=== PATIENT | female | born 1985 | race Caucasian/White ===

== ENCOUNTER 2017-06-19 08:23 | Inpatient (IN) ==
[2017-06-19] MEDS ORDERED: 0.9 % Sodium Chloride 1,000 ML IVC ONE (09:08)
--- NOTE | 2017-06-19 09:30 | Emergency Department Note ---
Disposition Clinical Impression: Pulmonary embolism Qualifiers: Pulmonary embolism type: other Chronicity: acute Acute cor pulmonale presence: without acute cor pulmonale Qualified Code(s): I26.99 - Other pulmonary embolism without acute cor pulmonale Disposition: Admitted As Inpatient Condition: Good Referrals: Richard Greenwood MD [Primary Care Provider] - Forms: ED Satisfaction Letter Time of Disposition: 12:23 SOB HPI - General Chief Complaint: ED Shortness of Breath/Dyspnea Stated Complaint: JESÚS,High pulse,dizziness Time Seen by Provider: 06/19/17 08:55 Source: patient Mode of arrival: ambulatory Limitations: no limitations Nursing Notes Reviewed: Yes Vital Signs Reviewed: Yes - History of Present Illness 31-year-old female presents to the ED complaining of shortness of breath. Patient states this tingling on for about a week. She is also having some chest pressure when she has shortness of breath as well. She says the center of her chest. It is nonradiating just stays in the center. She has had no nausea or vomiting. Actually one week ago she said she was lifting a washer and dryer and strained her trapezius. She was seen at urgent care and given muscle relaxers and naproxen. Since then that has healed. But as the shortness of breath started. During that time she was not very active and said she fell at times sitting in bed due to the pain. She recently 1 month ago was put on the NuvaRing. She has no history of blood clots. She has been on no long car rides or plane rides. She said she is very short of breath no matter what she does including just walking around. This is very abnormal for her. She is not a smoker. She has never had any cardiac issues. She is not complaining of leg pain or leg swelling. No recent surgeries. Patient's having no headaches or blurry vision or changes in mental status and no abdominal pain, pain with urination or any constipation. She is having no pain or tingling going down the arms or legs - Related Data Allergies Allergy/AdvReac Type Severity Reaction Status Date / Time Cefaclor [From Ceclor] Allergy Rash Verified 06/18/17 17:13 Review of Systems: 10 point review of systems done and negative unless otherwise stated in history of present illness. All systems ED: reviewed and negative except as stated. Review of Systems: As Per HPI Past Medical History - Past Medical History Attestation: Yes The following information was validated with the patient. Medical history: Reports: no medical history Psychiatric history: Reports: other - Social History Smoking Status: Never smoker Smokeless Tobacco Status: No Alcohol use: Reports: rarely Drug use: Reports: none Physical Exam - General Limitations: no limitations General appearance: alert, in no apparent distress - Head Head exam: atraumatic, normocephalic, normal inspection - Eye Eye exam: Present: normal appearance, PERRL, EOMI - ENT ENT exam: normal exam, normal oropharynx, mucous membranes moist - Neck Neck exam: Present: normal inspection, full ROM, trachea midline - Chest Chest inspection: Present: normal inspection, symmetric chest wall rise - Respiratory Respiratory exam: Present: normal lung sounds bilaterally, accessory muscle use (Patient does have conversational dyspnea). Absent: wheezes, stridor - Cardiovascular Cardiovascular exam: Present: regular rate, normal rhythm, normal heart sounds - Abdominal Exam Abdominal exam: Present: soft, Non-Tender. Absent: tenderness, distention, guarding, rebound, rigidity - Extremities Exam Extremities exam: Present: normal inspection, full ROM, normal capillary refill. Absent: tenderness, pedal edema, calf tenderness - Expanded Lower Extremity Exam Neurovascular/Tendon exam: Absent: motor deficit, sensory deficit, tendon deficit Gait: observed and normal - Back Exam Back exam: Present: normal inspection, full ROM. Absent: tenderness - Neurological Exam Neurological exam: Present: alert, oriented X3 - Skin Skin exam: Present: warm, dry, intact, normal color Course Course Narrative: 31-year-old who presents with shortness of breath and dyspnea thing occurring for week and increased today. 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 Her coworkers were the ones that says she needs to come in. At this time we will do a chest pain workup including a CT angios of her chest looking for pulmonary embolism as she does have risk factors including recent hormone use recent sitting down and shortness of breath. We will get CBC, CMP, urinalysis and as well as chest x-ray and EKG with troponin patient's okay at this point we will reevaluate. We will also give her 1 L of intravenous fluids for the tachycardia. - Consultations Consultation #1: With cardiology, Dr. Ramos who said that he would notify whoever is reading echo that this is a stat read for heart strain. He also recommended that we get a ultrasound duplex bilaterally to see if there is any clot burden. And to see if she may need a IVC filter. They will consult when she gets the floor Time: 12:15 Consultation #2: Spoke with the hospitalist who agreed to admit the patient Dr. Casillas Time: 12:22 Vital Signs Temperature 97.8 F 06/19/17 08:40 Pulse Rate 113 06/19/17 08:40 Respiratory Rate 18 06/19/17 08:40 Blood Pressure 129/86 06/19/17 08:40 O2 Sat by Pulse Oximetry 98 06/19/17 08:40 Temperature 97.8 F 06/19/17 08:40 Pulse Rate 102 06/19/17 10:34 Respiratory Rate 16 06/19/17 10:34 Blood Pressure 125/93 06/19/17 10:34 O2 Sat by Pulse Oximetry 96 06/19/17 10:34 Oxygen Delivery Oxygen Delivery Room Air Shortness of Breath/Dyspnea - MDM Narrative Medical decision making narrative: 31-year-old female presented to the ED with shortness of breath for about one week. She recently started the NuvaRing approximately one month ago. 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 His first breath has been increasing where she has had a cough. She has had no bilateral leg swelling or pain. At this time we got basic labs including CBC and CMP was came back normal. She did have an elevated troponin of 0.04. Due to her risk factors and the shortness of breath was decided to get a CT angios of her chest which did show bilateral pulmonary embolisms. At this time we started heparin. Spoke with cardiology who asked that we get bilateral duplex for clot burden. Patient is very medically stable. We did get a stat echo to look for heart strain. This is still pending and the admitting physician will follow-up on this. I did speak with Dr. Casillas the hospitalist who agreed to accept the patient. Patient is admitted in stable condition. Chest CTA 06/19/17 09:09 IMPRESSION: 1. Right distal pulmonary artery pulmonary emboli extending into the lobar and segmental branches of the right upper lobe, right middle lobe, and right upper lobe. Lobar pulmonary emboli in the left lower lobe, extending into the left lower lobe segmental branches. RV to LV ratio is less than 1. 2. Bilateral peripheral airspace consolidations in the right and left lower lobe. Given the associated pulmonary emboli, this may represent pulmonary infarcts. 3. Small bilateral pleural effusions. 4. Small pericardial effusion. Findings were discussed with Dr. Mccall at 11:17 am on 06/19/2017. D/ / 06/19/2017 11:27:01 Terrence Gomes MD / nereida Interpreting Provider: Terrence Gomes MD Chest X-Ray 06/19/17 09:09 IMPRESSION: Small left pleural effusion. D/ / Fermin Jorge MD / Fermin Jorge MD Interpreting Provider: eFrmin Jorge MD - Medical Records Medical records reviewed: Yes I reviewed the patient's medical records. - Lab Data Lab results reviewed: Yes I reviewed the patient's lab results. Result diagrams: 06/19/17 09:52 06/19/17 09:52 Lab Results 06/19/17 06/19/17 06/19/17 Range/Units 09:52 09:52 09:52 WBC 6.5 (4.3-11.1) K/mcL RBC 4.44 (3.82-4.97) M/mcL Hgb 13.0 (11.5-15.4) g/dL Hct 38.7 (35.3-44.9) % MCV 87.2 (83.0-100.0) fL MCH 29.3 (28.0-33.3) pg MCHC 33.6 (31.6-35.5) g/dL RDW 11.7 (11.5-14.5) % Plt Count 259 (140-400) K/mcL MPV 10.0 (9.4-12.4) fL Immature Gran % 0.2 (0-4) % Seg Neutrophils % 71.9 % Lymphocytes % 16.4 % Monocytes % 9.3 % Eosinophils % 1.7 % Basophils % 0.5 % Neutrophils # 4.7 (1.6-8.9) K/mcL Lymphocytes # 1.1 (0.6-4.6) K/mcL Monocytes # 0.6 (0.0-1.3) K/mcL Eosinophils # 0.1 (0.0-0.6) K/mcL Basophils # 0.0 (0.0-0.2) K/mcL Immature Plt Fraction 3.5 (1.1-6.1) % PT (9.4-12.1) Seconds INR APTT (26.0-36.0) Seconds Sodium 142 (136-145) mEq/L Potassium 3.9 (3.5-4.5) mEq/L Chloride 107 (98-109) mEq/L Carbon Dioxide 22 (19-29) mEq/L BUN 15 (7-20) mg/dL Creatinine 0.77 (0.57-1.11) mg/dL Est GFR ( Amer) > 60 (> 60) Est GFR (Non-Af Amer) > 60 (> 60) BUN/Creatinine Ratio 19 (6-26) Glucose 97 (70-99) mg/dL Calculated Osmolality 295 (280-300) Lactic Acid 0.9 (0.5-2.2) mmol/L Calcium 9.3 (8.6-10.8) mg/dL Troponin I (0-0.03) ng/mL 06/19/17 06/19/17 Range/Units 09:52 09:52 WBC (4.3-11.1) K/mcL RBC (3.82-4.97) M/mcL Hgb (11.5-15.4) g/dL Hct (35.3-44.9) % MCV (83.0-100.0) fL MCH (28.0-33.3) pg MCHC (31.6-35.5) g/dL RDW (11.5-14.5) % Plt Count (140-400) K/mcL MPV (9.4-12.4) fL Immature Gran % (0-4) % Seg Neutrophils % % Lymphocytes % % Monocytes % % Eosinophils % % Basophils % % Neutrophils # (1.6-8.9) K/mcL Lymphocytes # (0.6-4.6) K/mcL Monocytes # (0.0-1.3) K/mcL Eosinophils # (0.0-0.6) K/mcL Basophils # (0.0-0.2) K/mcL Immature Plt Fraction (1.1-6.1) % PT 13.3 H (9.4-12.1) Seconds INR 1.2 APTT 28.1 (26.0-36.0) Seconds Sodium (136-145) mEq/L Potassium (3.5-4.5) mEq/L Chloride (98-109) mEq/L Carbon Dioxide (19-29) mEq/L BUN (7-20) mg/dL Creatinine (0.57-1.11) mg/dL Est GFR ( Amer) (> 60) Est GFR (Non-Af Amer) (> 60) BUN/Creatinine Ratio (6-26) Glucose (70-99) mg/dL Calculated Osmolality (280-300) Lactic Acid (0.5-2.2) mmol/L Calcium (8.6-10.8) mg/dL Troponin I 0.04 H* (0-0.03) ng/mL - Radiology Data Radiology results reviewed: Yes I reviewed the patient's radiology results. - EKG Data EKG attestation: Yes I reviewed and interpreted this EKG. EKG results narrative: EKG done at 0 850 review myself and attending shows sinus tachycardia at a rate of 119, ID interval 131, QRS 78, QTC 406 with a normal axis. There is T-wave inversion in lead 3 and aVF. No acute ST changes. No signs of heart strain or hypertrophy. No signs of any heart blocks. No signs of WPW/Brugada syndrome. There was no old EKG to compare this time. Critical Care Time Critical Care Time: Yes Total Critical Care Time: 45 Attestation: Critical care performed: Time is exclusive of separately billable procedures. Time includes: direct patient care, patient reassessment, coordination of patient care, interpretation of data (laboratory data, radiology data, and respiratory data), review of patient's medical records, medical consultation and documentation of patient care. Procedures included in critical care time: Procedures excluded from critical care time: Attestation Statement - Attestation Attestation: I, Nestor Mccall DO, examined this patient [id number] and my medical decision-making was reviewed with Dr. Vincenzo Mercado, Resident Physician. I agree with the documented findings, disposition and treatment plan as described except to the extent set forth below. Please see my progress notes for details. 31-year-old female presents to the emergency room for evaluation of shortness of breath and tachycardia. Patient has been seen several times over the last week and half for similar issues. Initially she was diagnosed with a muscular skeletal strain of the back One half weeks ago. Symptoms did not get better. Her back pain is gone but she has still been persistently short of breath. Patient denies any chest pain fevers chills nausea vomiting or diarrhea. Denies headache or vision change. She has lost 76 pounds over the last year but this was due to dieting and exercise. She is currently not on any dietary supplements or herbal remedies at this point. She denies any other medical history. She is currently using the NuvaRing. Vital signs reviewed and are otherwise unremarkable except for tachycardia. On my physical exam she is conversationally dyspneic. She speaks in full sentences she is aware she is oriented. She has no other signs of trauma or injury. Her lungs are clear her heart is regular but tachycardic. EKG does show mild ischemic changes in the inferior lateral leads. Patient will have detailed evaluation with labs EKG chest x-ray and CT angiography of the chest completed as needed. Otherwise her physical exam is unremarkable. She is concerning for pulmonary emboli secondary to the estrogen supplementation as well as further evaluation. See detailed documentation of the physical exam, medical intervention, medical decision-making and disposition the resident physician's note 1120 Contacted by radiology. Repeat confirms bilateral pulmonary emboli with possible bilateral lower lobe infarcts. Patient started on heparin at this time and stat echocardiogram ordered. Patient does not have any acute signs of right ventricular strain on exam but we are going to eliminate this aspect of the pathology at this point. Patient still conversationally dyspneic. Heparin boluses to be started. Currently not on her period and denies any rectal bleeding or history of bleeding disorder. Patient will be admitted for definitive management. 1235 Patient started on heparin drip emergency room echocardiogram and Dopplers ordered. Hospitals contacted for admission.
[2017-06-19 10:00] LABS: Basophils % 0.5 %; Eosinophils # 0.1 K/mcL (0.0-0.6); Eosinophils % 1.7 %; Hematocrit 38.7 % (35.3-44.9); Immature Granulocytes % 0.2 % (0-4); Immature Platelets 3.5 % (1.1-6.1); Lymphocytes # 1.1 K/mcL (0.6-4.6); Lymphocytes % 16.4 %; Mean Corpuscular HGB Conc 33.6 g/dL (31.6-35.5); Mean Corpuscular Hemoglobin 29.3 pg (28.0-33.3); Mean Corpuscular Volume 87.2 fL (83.0-100.0); Monocytes # 0.6 K/mcL (0.0-1.3); Monocytes % 9.3 %; Neutrophils # 4.7 K/mcL (1.6-8.9); Platelet Count 259 K/mcL (140-400); Red Blood Count 4.44 M/mcL (3.82-4.97); Red Cell Distribution Width 11.7 % (11.5-14.5); Segmented Neutrophils % 71.9 %
[2017-06-19 10:12] LABS: BUN/Creatinine Ratio 19 (6-26); Blood Urea Nitrogen 15 mg/dL (7-20); Calcium 9.3 mg/dL (8.6-10.8); Carbon Dioxide 22 mEq/L (19-29); Chloride 107 mEq/L (98-109); Glucose 97 mg/dL (70-99); Osmolality,Calculated 295 (280-300); Potassium 3.9 mEq/L (3.5-4.5); Sodium 142 mEq/L (136-145); eGFR For African Americans > 60 (> 60); eGFR For Non-African Americans > 60 (> 60)
[2017-06-19] MEDS ORDERED: *HR* Heparin 5,000 UNIT/ML VIAL IVP ONE (10:59)
[2017-06-19] MEDS ORDERED: *HR* Heparin 5,000 UNIT/ML VIAL IVP PRN ×2 (10:59)
[2017-06-19 11:13] LABS: INR 1.2; Prothrombin Time 13.3 Seconds (9.4-12.1)
[2017-06-19 11:16] LABS: Activated Partial Thrombo Time 28.1 Seconds (26.0-36.0)
[2017-06-19] MEDS: Heparin 25,000 UNIT/500 ML D5W 25,000 UNIT/500 ML MLS IVC SCH (11:44)
[2017-06-19] MEDS ORDERED: *HR* Morphine 2 MG/ML SYRINGE IVP PRN (12:47)
[2017-06-19] MEDS ORDERED: Naloxone 0.4 MG/ML INJ IVP PRN (12:47)
--- NOTE | 2017-06-19 12:55 | Internal Med History&Physical ---
Date of Encounter: 06/19/17 Time of Encounter: 12:52 Assessment and Plan (1) Pulmonary embolism Current visit: Yes Status: Acute acute mutli-focal PE supportive care IVF ED ordered heparin gtt, dopplers and TTE - pending Based on insurance preference regarding drug of choice, would switch to DOAC on discharge. 3-6 months given this is estrogen provoked Would rec removing nuvaring as it has estrogen component. Would rec progestin only contraception or barrier methods Qualifiers: Pulmonary embolism type: other Chronicity: acute Acute cor pulmonale presence: without acute cor pulmonale Qualified Code(s): I26.99 - Other pulmonary embolism without acute cor pulmonale (2) Dyspnea Current visit: No Status: Acute related to PE above, treat with supportive care, anticoagulation Qualifiers: Dyspnea type: shortness of breath Qualified Code(s): R06.02 - Shortness of breath; R06.00 - Dyspnea, unspecified; R06.01 - Orthopnea Internal Medicine - H&P: HPI Chief complaint: SOB History of present illness: Ms. Chambers is a 31 year old female who presents acute SOB, found to have acute multi-focal PE She reports SOB and chest pressure for the last week. Chest pain nonradiating, sternal in nature. She went to urgent care with a right back ache that was pleuritic and received empiric anti-spasmodics. However, symptoms did not improve. 2 days ago, she developed progressively worsening SOB associated with pre-syncope on ambulation around her house. She also developed SOB on ambulation around her house. On review, she had started on nuvaring control 1 month ago. She does not smoke nor is she obese. She denies any family or personal hx of blood clots. Denies any sedentary risk factors. EKG personally reviewed with rate of 119, sinus tachycardia XR/XR chest 1V portable IMPRESSION: Small left pleural effusion. CT/CT angio chest IMPRESSION: 1. Right distal pulmonary artery pulmonary emboli extending into the lobar and segmental branches of the right upper lobe, right middle lobe, and right upper lobe. Lobar pulmonary emboli in the left lower lobe, extending into the left lower lobe segmental branches. RV to LV ratio is less than 1. 2. Bilateral peripheral airspace consolidations in the right and left lower lobe. Given the associated pulmonary emboli, this may represent pulmonary infarcts. 3. Small bilateral pleural effusions. 4. Small pericardial effusion. Findings were discussed with Dr. Mccall at 11:17 am on 06/19/2017. Past Med Surg Social Fam HX - Past Medical History Medical history: no medical history Psychiatric history: other - Social History Smoking Status: Never smoker Smokeless Tobacco Status: No Alcohol use: rarely Drug use: none - Family History Father Hx Family Cardiac Disorders: Yes (HLD) Hx Family Endocrine Disorder: Yes Grandmother Hx Family Cardiac Disorders: Yes (Heart Attack, CVA) Mother Hx Family Cardiac Disorders: Yes Hx Family Neurologic Disorders: Yes (TIA) Internal Medicine - H&P: Meds Escitalopram [Lexapro] 10 mg PO DAILY 06/19/17 [History] Etonogestrel/Ethinyl Estradiol [Nuvaring Vaginal Ring] 1 each VG [id number] [History] 3 Allergy/AdvReac Type Severity Reaction Status Date / Time [facility] Allergy Rash Verified 06/18/17 17:13 All Systems PM: A 10-system review of systems was performed and is negative for pertinent findings except as documented above in the HPI. Review of systems: ROS 14 point review of systems reviewed as best as possible given presentation. Pertinent positive or negative as per HPI or otherwise reviewed as negative - Constitutional Vitals: Temp Pulse Resp BP Pulse Ox 97.8 F 102 16 125/93 96 06/19/17 08:40 06/19/17 10:34 06/19/17 10:34 06/19/17 10:34 06/19/17 10:34 Exam: General - AAO x 3 Psych - Appropriate affect/speech. No agitation Eyes - BART. Eye lids intact. No scleral icterus Heart - Sinus. RRR. S1 and S2 present. No added HS/murmurs appreciated. No elevated JVD appreciated. Lung - Adequate air entry b/l, No crackles/wheezes appreciated GI - Soft, non-tender. No hepatosplenomegaly/ascites. BS+ - No CVA/suprapubic tenderness or palpable bladder distension Skin - Intact. No rash/petechiae/ecchymosis. Warm extremities MSK - Joints with normal ROM. No joint swellings Internal Med - H&P Results - Labs CBC & Chem 7: 06/19/17 09:52 06/19/17 09:52
--- NOTE | 2017-06-19 16:37 | Electrocardiograph Report ---
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
[2017-06-19] MEDS: 0.9 % Sodium Chloride 1,000 ML IVC SCH (17:34)
[2017-06-20 01:27] LABS: Basophils % 0.4 %; Eosinophils # 0.1 K/mcL (0.0-0.6); Eosinophils % 2.7 %; Hematocrit 33.9 % (35.3-44.9); Immature Granulocytes % 0.4 % (0-4); Lymphocytes # 1.3 K/mcL (0.6-4.6); Lymphocytes % 26.4 %; Mean Corpuscular HGB Conc 32.7 g/dL (31.6-35.5); Mean Corpuscular Hemoglobin 29.2 pg (28.0-33.3); Mean Corpuscular Volume 89.2 fL (83.0-100.0); Mean Platelet Volume 10.4 fL (9.4-12.4); Monocytes # 0.4 K/mcL (0.0-1.3); Platelet Count 223 K/mcL (140-400); Red Cell Distribution Width 11.9 % (11.5-14.5); Segmented Neutrophils % 61.1 %
[2017-06-20 01:33] LABS: Hemoglobin 11.1 g/dL (11.5-15.4)
[2017-06-20 01:37] LABS: INR 1.2
[2017-06-20 01:39] LABS: Activated Partial Thrombo Time 56.3 Seconds (26.0-36.0)
[2017-06-20 01:40] LABS: BUN/Creatinine Ratio 21 (6-26); Blood Urea Nitrogen 14 mg/dL (7-20); Calcium 8.3 mg/dL (8.6-10.8); Carbon Dioxide 23 mEq/L (19-29); Chloride 110 mEq/L (98-109); Glucose 111 mg/dL (70-99); Osmolality,Calculated 295 (280-300); Potassium 3.8 mEq/L (3.5-4.5); Sodium 142 mEq/L (136-145); eGFR For African Americans > 60 (> 60); eGFR For Non-African Americans > 60 (> 60)
[2017-06-20] MEDS: 0.9 % Sodium Chloride 1,000 ML IVC SCH ×3 (02:22→23:26)
[2017-06-20] MEDS: Heparin 25,000 UNIT/500 ML D5W 25,000 UNIT/500 ML MLS IVC SCH (08:03)
[2017-06-20] MEDS ORDERED: Albuterol 2.5 MG/3 ML NEBULIZER IH PRN (13:08)
[2017-06-20] MEDS: Acetaminophen 325 MG TABLET PO PRN ×2 (13:19→21:59)
--- NOTE | 2017-06-20 19:39 | Internal Med Progress Note ---
Date of Encounter: 06/20/17 Time of Encounter: 19:37 - Assessment and plan (1) Dyspnea Current Visit: No Status: Acute Qualifiers: Dyspnea type: shortness of breath Qualified Code(s): R06.02 - Shortness of breath; R06.00 - Dyspnea, unspecified; R06.01 - Orthopnea (2) Pulmonary embolism Current Visit: Yes Status: Acute Qualifiers: Pulmonary embolism type: other Chronicity: acute Acute cor pulmonale presence: without acute cor pulmonale Qualified Code(s): I26.99 - Other pulmonary embolism without acute cor pulmonale - Subjective Interval history: Bilateral PE with quite heavy blood clot load. Surprisingly echocardiogram did not show much right heart strain pattern. Leg ultrasound is negative. Will continue IV heparin for now as her oxygen demand as I. As she becomes more stable we can switch her to Xarelto and discharge home. Counseling provided regarding contraceptive and advised not to use any hormone product and consult with her KILN FURNITURE CASTER for the purpose of contraception. - Constitutional Vitals: Temp Pulse Resp BP Pulse Ox 98.3 F 92 17 119/77 93 06/20/17 14:54 06/20/17 14:54 06/20/17 14:54 06/20/17 14:54 06/20/17 14:54 - Head Head exam: Present: atraumatic, normocephalic - Eye Eye exam: Present: PERRL, conjuntiva pink, sclera anicteric Pupils: Present: PERRL - Neck Neck exam general surgery: Present: supple, trachea midline. Absent: lymphadenopathy - Respiratory Respiratory exam: Present: CTAB, wheezes. Absent: accessory muscle use, rales, rhonchi - Cardiovascular Cardiovascular exam: Present: RRR, +S1, +S2. Absent: diastolic murmur, gallop, rubs, systolic murmur - GI/Abdominal GI/Abdominal exam: Present: normal bowel sounds, soft, no peritoneal signs. Absent: distended, tenderness - Extremities Exam Extremities exam: Present: warm, radial pulses palpable and symmetrical. Absent : calf tenderness, cyanotic, pedal edema - Neurological Exam Neurological exam: Present: CN II-XII intact, oriented X3, no focal deficits. Absent: pronater drift, facial droop, speech deficit - Skin Skin exam: Present: dry, intact Internal Medicine: Result - Labs CBC & Chem 7: 06/20/17 00:30 06/20/17 00:30 Labs: Short CBC 06/20/17 Range/Units 00:30 WBC 4.9 (4.3-11.1) K/mcL Hgb 11.1 L D (11.5-15.4) g/dL Hct 33.9 L (35.3-44.9) % Plt Count 223 (140-400) K/mcL Neutrophils # 3.0 (1.6-8.9) K/mcL BMP 06/20/17 00:30 Sodium 142 Potassium 3.8 Chloride 110 H Carbon Dioxide 23 BUN 14 Creatinine 0.67 Glucose 111 H Calcium 8.3 L - ABG Interpretation ABG results: PT/INR, D-dimer PT 13.0 Seconds (9.4-12.1) H 06/20/17 00:30 Consult Discharge Plan - Plan Referrals: Richard Greenwood MD [Primary Care Provider] -
[2017-06-21] MEDS: Heparin 25,000 UNIT/500 ML D5W 25,000 UNIT/500 ML MLS IVC SCH ×2 (01:12→19:19)
[2017-06-21] MEDS: Acetaminophen 325 MG TABLET PO PRN (10:01)
[2017-06-21] MEDS: 0.9 % Sodium Chloride 1,000 ML IVC SCH ×2 (10:03→19:20)
--- NOTE | 2017-06-21 16:22 | Internal Med Progress Note ---
Date of Encounter: 06/21/17 Time of Encounter: 16:21 - Assessment and plan (1) Dyspnea Current Visit: No Status: Acute Qualifiers: Dyspnea type: shortness of breath Qualified Code(s): R06.02 - Shortness of breath; R06.00 - Dyspnea, unspecified; R06.01 - Orthopnea (2) Pulmonary embolism Current Visit: Yes Status: Acute Qualifiers: Pulmonary embolism type: other Chronicity: acute Acute cor pulmonale presence: without acute cor pulmonale Qualified Code(s): I26.99 - Other pulmonary embolism without acute cor pulmonale - Subjective Interval history: Bilateral PE with quite heavy blood clot load. Surprisingly echocardiogram did not show much right heart strain pattern. Leg ultrasound is negative. Will continue IV heparin for now as her oxygen demand as I. As she becomes more stable we can switch her to Xarelto and discharge home. Counseling provided regarding contraceptive and advised not to use any hormone product and consult with her VIDEO TECHNICIAN for the purpose of contraception. Patient can ambulate without oxygen and O2 sat maintains and 90s however heart rate jumps and 128 range. Continue IV heparin and probably will switch to Xarelto tomorrow and discharge home. - Constitutional Vitals: Temp Pulse Resp BP Pulse Ox 97.5 F L 98 18 117/77 98 06/21/17 15:53 06/21/17 15:53 06/21/17 15:53 06/21/17 15:53 06/21/17 15:53 - Head Head exam: Present: atraumatic, normocephalic - Eye Eye exam: Present: PERRL, conjuntiva pink, sclera anicteric Pupils: Present: PERRL - Neck Neck exam general surgery: Present: supple, trachea midline. Absent: lymphadenopathy - Respiratory Respiratory exam: Present: CTAB. Absent: accessory muscle use, rales, rhonchi, wheezes - Cardiovascular Cardiovascular exam: Present: RRR, +S1, +S2. Absent: diastolic murmur, gallop, rubs, systolic murmur - GI/Abdominal GI/Abdominal exam: Present: normal bowel sounds, soft, no peritoneal signs. Absent: distended, tenderness - Extremities Exam Extremities exam: Present: warm, radial pulses palpable and symmetrical. Absent : calf tenderness, cyanotic, pedal edema - Neurological Exam Neurological exam: Present: CN II-XII intact, oriented X3, no focal deficits. Absent: pronater drift, facial droop, speech deficit - Skin Skin exam: Present: dry, intact Internal Medicine: Result - Labs CBC & Chem 7: 06/20/17 00:30 06/20/17 00:30 - ABG Interpretation ABG results: PT/INR, D-dimer PT 13.0 Seconds (9.4-12.1) H 06/20/17 00:30 Consult Discharge Plan - Plan Referrals: Richard Greenwood MD [Primary Care Provider] -
[2017-06-22] MEDS: 0.9 % Sodium Chloride 1,000 ML IVC SCH (06:27)
--- NOTE | 2017-06-22 08:56 | Discharge Summary ---
Date of Encounter: 06/22/17 Time of Encounter: 08:53 - Discharge Diagnosis (1) Dyspnea Priority: Secondary Status: Acute Qualifiers: Dyspnea type: shortness of breath Qualified Code(s): R06.02 - Shortness of breath; R06.00 - Dyspnea, unspecified; R06.01 - Orthopnea (2) Pulmonary embolism Priority: Primary Status: Acute Qualifiers: Pulmonary embolism type: other Chronicity: acute Acute cor pulmonale presence: without acute cor pulmonale Qualified Code(s): I26.99 - Other pulmonary embolism without acute cor pulmonale - Discharge Medications Prescriptions: Rivaroxaban [Xarelto] 15 mg PO BID #42 tablet Home Medications: Escitalopram [Lexapro] 10 mg PO DAILY 06/19/17 [History] Acetaminophen [Tylenol] 650 mg PO Q6HR PRN tablet 06/22/17 [Rx] Rivaroxaban [Xarelto] 15 mg PO BID #42 tablet 06/22/17 [Rx] Allergies/Adverse Reactions: 3 Allergy/AdvReac Type Severity Reaction Status Date / Time Cefaclor [From Ceclor] Allergy Rash Verified 06/18/17 17:13 Date of admission: 06/19/17 15:38 Primary care physician: Richard Greenwood MD Discharging clinician: Ekaterina Archuleta Anticipated date of discharge: 06/22/17 - Patient Status Disposition: Home, Self-Care Condition: Good Functional capacity at discharge: independent ambulation Overall status at discharge: patient is progressing back to baseline - Discharge Instructions Follow Up With: Richard Greenwood MD [Primary Care Provider] - - Diet and Activity Activity: increase activity as tolerated Diet: advance to your usual diet, regular diet Hospital course: Ms. Chambers is a 31 year old female admitted for Bilateral PE with quite heavy pulmonary blood clot load. Surprisingly echocardiogram did not show much right heart strain pattern. Leg ultrasound is negative. Initially she was placed on IV heparin, nasal oxygen. Gradually her oxygen demand came down and now she A becomes more stable we can switch her to Xarelto and discharge home. Counseling provided regarding contraceptive and advised not to use any hormone product and consult with her [employer] for the purpose of contraception. - Time Spent with Patient Total time spent providing and/or coordinating discharge services: Greater than 30 minutes - Constitutional Vitals: Temp Pulse Resp BP Pulse Ox 98.1 F 77 15 113/74 95 06/22/17 07:12 06/22/17 07:12 06/22/17 07:12 06/22/17 07:12 06/22/17 07:12 - Head Head exam: Present: atraumatic, normocephalic - Eye Eye exam: Present: PERRL, conjuntiva pink, sclera anicteric Pupils: Present: PERRL - Neck Neck exam general surgery: Present: supple, trachea midline. Absent: lymphadenopathy - Respiratory Respiratory exam: Present: CTAB. Absent: accessory muscle use, rales, rhonchi, wheezes - Cardiovascular Cardiovascular exam: Present: RRR, +S1, +S2. Absent: diastolic murmur, gallop, rubs, systolic murmur - GI/Abdominal GI/Abdominal exam: Present: normal bowel sounds, soft, no peritoneal signs. Absent: distended, tenderness - Extremities Exam Extremities exam: Present: warm, radial pulses palpable and symmetrical. Absent : calf tenderness, cyanotic, pedal edema - Neurological Exam Neurological exam: Present: CN II-XII intact, oriented X3, no focal deficits. Absent: pronater drift, facial droop, speech deficit - Skin Skin exam: Present: dry, intact
[2017-06-22] MEDS ORDERED: *HR* Rivaroxaban 15 MG TABLET PO SCH (09:00)
[2017-06-22 11:17] VITALS: BP 116/77
== END 2017-06-22 14:10 | disposition home or self-care (01) | DRG 176 ==
LOC: EMEROO 08:23 → 2ANU 08:23
PROVIDERS: ADMIT Internal Medicine; ATTEND Internal Medicine

== ENCOUNTER 2017-07-21 09:08 | Observation (INO) ==
--- NOTE | 2017-07-21 10:20 | Emergency Department Note ---
Disposition Clinical Impression: Pleuritic chest pain, Pleural effusion Disposition: Admitted As Inpatient Condition: Good Referrals: Richard Greenwood MD [Partnered Physician] - Forms: ED Satisfaction Letter General Adult HPI - General Chief complaint: ED Shortness of Breath/Dyspnea Stated complaint: Pain with inspiration Time Seen by Provider: 07/21/17 09:16 Source: patient, family Mode of arrival: ambulatory Limitations: no limitations Nursing Notes Reviewed: Yes Vital Signs Reviewed: Yes - History of Present Illness HPI Narrative: Patient is a pleasant 32-year-old white female who presents to the emergency department today brought by her mother for a 2 day history of intermittent pleuritic right-sided chest pain that she notices with deep breathing or cough. Patient states over the past few days she has had a little bit of postnasal drip and this occasionally triggers a nonproductive cough and when she coughs she has some right-sided pleuritic pain she feels anteriorly as well as in the lower posterior aspect of her chest wall. Patient denies any hemoptysis, no shortness of breath, no dizziness or lightheadedness, no syncope. Patient was here in the emergency department approximately one month ago and diagnosed with bilateral PE and hospitalized. Patient had a stat cardiac echo at that time which showed no evidence of heart strain, and she remained hemodynamically stable throughout her hospital course. On initial presentation she was tachycardic, dyspneic and symptomatic. Patient had no evidence of lower extremity DVTs bilaterally. She was discharged home on Xarelto and is following a home pack which tapered her at the beginning of this week. Patient denies any palpitations or tachycardia over the last 2 days. Patient states that she feels a little worse when she lies flat and is sitting up or standing. Otherwise patient hemodynamically stable and no signs of respiratory distress on arrival today. Pain Scale: 5 - Related Data Home Medications Medication Instructions Recorded Confirmed Escitalopram [Lexapro] 10 mg PO DAILY 06/19/17 06/19/17 Previous Rx's Medication Instructions Recorded Acetaminophen [Tylenol] 650 mg PO Q6HR PRN tablet 06/22/17 Rivaroxaban [Xarelto] 15 mg PO BID #42 tablet 06/22/17 Allergies Allergy/AdvReac Type Severity Reaction Status Date / Time Cefaclor [From [facility]] Allergy Rash Verified 06/18/17 17:13 All systems ED: reviewed and negative except as stated. Review of Systems: As Per HPI Constitutional: Denies: fever, chills ENT ED: Reports: other (Postnasal drip). Denies: congestion Cardiovascular: Reports: chest pain Respiratory: Reports: cough. Denies: dyspnea, wheezes, hemoptysis, stridor, sputum production Gastrointestinal: Denies: abdominal pain, nausea, vomiting Musculoskeletal: Denies: back pain, neck pain Integumentary: Denies: rash Neurological: Denies: headache Past Medical History - Past Medical History Medical history: Reports: other Psychiatric history: Reports: other - Social History Smoking Status: Never smoker Smokeless Tobacco Status: No Alcohol use: Reports: rarely Drug use: Reports: none Physical Exam - General Limitations: no limitations General appearance: alert, in no apparent distress, other (No conversational dyspnea) - Head Head exam: atraumatic, normocephalic, normal inspection - Eye Eye exam: Present: normal appearance, PERRL, EOMI. Absent: scleral icterus - ENT ENT exam: normal exam, normal oropharynx, mucous membranes moist, TM's normal bilaterally - Neck Neck exam: Present: normal inspection, full ROM, trachea midline - Chest Chest inspection: Present: normal inspection, symmetric chest wall rise. Absent : tenderness - Respiratory Respiratory exam: Present: normal lung sounds bilaterally. Absent: respiratory distress, wheezes, stridor, accessory muscle use, prolonged expiratory phase - Cardiovascular Cardiovascular exam: Present: regular rate, normal rhythm, normal heart sounds - Abdominal Exam Abdominal exam: Present: soft, Non-Tender, normal bowel sounds - Extremities Exam Extremities exam: Present: normal inspection. Absent: pedal edema, calf tenderness - Back Exam Back exam: Present: normal inspection. Absent: CVA tenderness (R), CVA tenderness (L) - Neurological Exam Neurological exam: Present: alert, oriented X3, CN II-XII intact, reflexes normal. Absent: motor sensory deficit - Psychiatric Psychiatric exam: Present: normal affect, normal mood - Skin Skin exam: Present: warm, dry, intact, normal color Course Course Narrative: And Dr. Suazo who is currently on ultrasound do a quick bedside cardiac echo. There is no evidence of any heart strain or pericardial effusion. Patient's vitals are stable and she is in no acute distress today. Due to patient's significant clot burden and bilateral PE with significant change in pleuritic symptoms over the past 48 hours we will repeat some labs and imaging today. Patient remained monitored closely. - Reevaluation(s) Reevaluation #1: Patient's repeat imaging today a CT of the chest showed normal opacification of the pulmonary arteries with no evidence of PE today. She does have a new mild to moderate size pleural effusion in the right lung base. This is new for her she did not have this previously. This is apparently what is causing her her right-sided pleuritic pain. Otherwise patient's labs and EKG are within normal limits. I discussed the case with the hospitalist who accepted the patient for admission for further evaluation and possible pulmonary consult and further evaluation of this fluid. Patient remains hemodynamically stable and vitals are stable at this time and is agreeable with admission. Time: 12:18 Vital Signs Temperature 98.0 F 07/21/17 09:10 Pulse Rate 82 07/21/17 09:10 Respiratory Rate 18 07/21/17 09:10 Blood Pressure 118/82 07/21/17 09:10 O2 Sat by Pulse Oximetry 100 07/21/17 09:10 Temperature 98.0 F 07/21/17 09:10 Pulse Rate 71 07/21/17 11:04 Respiratory Rate 20 07/21/17 11:04 Blood Pressure 130/93 07/21/17 11:04 O2 Sat by Pulse Oximetry 97 07/21/17 11:04 Oxygen Delivery Oxygen Delivery Room Air Medical Decision Making - Medical Records Medical records reviewed: Yes I reviewed the patient's medical records. - Lab Data Lab results reviewed: Yes I reviewed the patient's lab results. Result diagrams: 07/21/17 10:13 07/21/17 10:13 Lab Results 07/21/17 07/21/17 07/21/17 Range/Units 10:13 10:13 10:13 WBC 4.9 (4.3-11.1) K/mcL RBC 3.98 (3.82-4.97) M/mcL Hgb 11.6 (11.5-15.4) g/dL Hct 35.8 (35.3-44.9) % MCV 89.9 (83.0-100.0) fL MCH 29.1 (28.0-33.3) pg MCHC 32.4 (31.6-35.5) g/dL RDW 12.9 (11.5-14.5) % Plt Count 166 (140-400) K/mcL MPV 10.9 (9.4-12.4) fL Immature Gran % 0.0 (0-4) % Seg Neutrophils % 62.2 % Lymphocytes % 28.9 % Monocytes % 7.5 % Eosinophils % 1.2 % Basophils % 0.2 % Neutrophils # 3.1 (1.6-8.9) K/mcL Lymphocytes # 1.4 (0.6-4.6) K/mcL Monocytes # 0.4 (0.0-1.3) K/mcL Eosinophils # 0.1 (0.0-0.6) K/mcL Basophils # 0.0 (0.0-0.2) K/mcL Sodium 140 (136-145) mEq/L Potassium 4.5 (3.5-4.5) mEq/L Chloride 107 (98-109) mEq/L Carbon Dioxide 22 (19-29) mEq/L BUN 10 (7-20) mg/dL Creatinine 0.71 (0.57-1.11) mg/dL Est GFR ( Amer) > 60 (> 60) Est GFR (Non-Af Amer) > 60 (> 60) BUN/Creatinine Ratio 14 (6-26) Glucose 92 (70-99) mg/dL Calculated Osmolality 289 (280-300) Calcium 9.0 (8.6-10.8) mg/dL Troponin I 0.00 (0-0.03) ng/mL B-Natriuretic Peptide (0-100) pg/mL 07/21/17 Range/Units 10:13 WBC (4.3-11.1) K/mcL RBC (3.82-4.97) M/mcL Hgb (11.5-15.4) g/dL Hct (35.3-44.9) % MCV (83.0-100.0) fL MCH (28.0-33.3) pg MCHC (31.6-35.5) g/dL RDW (11.5-14.5) % Plt Count (140-400) K/mcL MPV (9.4-12.4) fL Immature Gran % (0-4) % Seg Neutrophils % % Lymphocytes % % Monocytes % % Eosinophils % % Basophils % % Neutrophils # (1.6-8.9) K/mcL Lymphocytes # (0.6-4.6) K/mcL Monocytes # (0.0-1.3) K/mcL Eosinophils # (0.0-0.6) K/mcL Basophils # (0.0-0.2) K/mcL Sodium (136-145) mEq/L Potassium (3.5-4.5) mEq/L Chloride (98-109) mEq/L Carbon Dioxide (19-29) mEq/L BUN (7-20) mg/dL Creatinine (0.57-1.11) mg/dL Est GFR ( Amer) (> 60) Est GFR (Non-Af Amer) (> 60) BUN/Creatinine Ratio (6-26) Glucose (70-99) mg/dL Calculated Osmolality (280-300) Calcium (8.6-10.8) mg/dL Troponin I (0-0.03) ng/mL B-Natriuretic Peptide 28 (0-100) pg/mL - Radiology Data Radiology results reviewed: Yes I reviewed the patient's radiology results. Chest CTA 07/21/17 10:31 IMPRESSION: No evidence of pulmonary embolism. Mild right-sided pleural effusion. D/ / Ortega Rogers MD / Ortega Rogers MD Interpreting Provider: Ortega Rogers MD - EKG Data EKG #1 EKG results narrative: Patient's EKG today shows a normal sinus rhythm at 65 bpm with no acute ST or T- wave changes. This was compared to her prior EKG a month ago when she presented in sinus tachycardia with S1 every 3 T3 changes.
[2017-07-21 10:22] LABS: Basophils % 0.2 %; Eosinophils # 0.1 K/mcL (0.0-0.6); Eosinophils % 1.2 %; Hematocrit 35.8 % (35.3-44.9); Hemoglobin 11.6 g/dL (11.5-15.4); Lymphocytes # 1.4 K/mcL (0.6-4.6); Lymphocytes % 28.9 %; Mean Corpuscular HGB Conc 32.4 g/dL (31.6-35.5); Mean Corpuscular Hemoglobin 29.1 pg (28.0-33.3); Mean Corpuscular Volume 89.9 fL (83.0-100.0); Mean Platelet Volume 10.9 fL (9.4-12.4); Monocytes # 0.4 K/mcL (0.0-1.3); Monocytes % 7.5 %; Neutrophils # 3.1 K/mcL (1.6-8.9); Platelet Count 166 K/mcL (140-400); Red Blood Count 3.98 M/mcL (3.82-4.97); Red Cell Distribution Width 12.9 % (11.5-14.5); Segmented Neutrophils % 62.2 %
[2017-07-21 10:34] LABS: BUN/Creatinine Ratio 14 (6-26); Blood Urea Nitrogen 10 mg/dL (7-20); Carbon Dioxide 22 mEq/L (19-29); Chloride 107 mEq/L (98-109); Glucose 92 mg/dL (70-99); Osmolality,Calculated 289 (280-300); Potassium 4.5 mEq/L (3.5-4.5); Sodium 140 mEq/L (136-145); eGFR For African Americans > 60 (> 60); eGFR For Non-African Americans > 60 (> 60)
--- NOTE | 2017-07-21 13:38 | Internal Med History&Physical ---
Date of Encounter: 07/21/17 Time of Encounter: 12:00 Assessment and Plan (1) Pleuritic chest pain Current visit: Yes Status: Acute -Patient with chest pain with deep inspiration and found to have mild right sided pleural effusion or CTA. -Will consult pulmonology for possible thoracentesis and appreciate recommendations. (2) Pleural effusion Current visit: Yes Status: Acute -As above (3) Pulmonary embolism Current visit: No Status: Acute -Recent bilateral pulmonary embolism on 06/2017 on Xarelto, Qualifiers: Pulmonary embolism type: other Chronicity: chronic Acute cor pulmonale presence: without acute cor pulmonale Qualified Code(s): I27.82 - Chronic pulmonary embolism (4) Mood disorder Current visit: Yes Status: Acute -Continue SSRI Internal Medicine - H&P: HPI Chief complaint: Pleuritic chest pain Admitted From: Home Plans for Post Hospital Care: Home History of present illness: Patient is a 32-year-old female with past medical history of recent bilateral pulmonary embolism on 06/2017 on Xarelto, who presents to the ER on 07/21/17 due to pleuritic chest pain with inspiration. Patient reports after discharge on 06/22/17 for bilateral PE, she did not have any symptoms of shortness of breath or pleuritic chest pain. However, patient now reports a 3 day history of chest pain with deep inspiration in addition to right mid back pain if she lies on her right side and takes a deep breath. She was concerned and decided to come to the ER for evaluation. In the ER, a CTA showed mild right sided pleural effusion; she will be admitted to the medical surgical floor for further evaluation/management. Past Med Surg Social Fam HX - Past Medical History Medical history: other Psychiatric history: other - Social History Smoking Status: Never smoker Smokeless Tobacco Status: No Alcohol use: rarely Drug use: none - Family History Father Hx Family Cardiac Disorders: Yes (HLD) Hx Family Endocrine Disorder: Yes Grandmother Hx Family Cardiac Disorders: Yes (Heart Attack, CVA) Mother Hx Family Cardiac Disorders: Yes Hx Family Neurologic Disorders: Yes (TIA) Internal Medicine - H&P: Meds Escitalopram [Lexapro] 10 mg PO DAILY 06/19/17 [History] Rivaroxaban [Xarelto] 20 mg PO DAILY 07/21/17 [History] 3 Allergy/AdvReac Type Severity Reaction Status Date / Time [facility] Allergy Rash Verified 06/18/17 17:13 All Systems PM: A 10-system review of systems was performed and is negative for pertinent findings except as documented above in the HPI. - Constitutional Vitals: Temp Pulse Resp BP Pulse Ox 98.2 F 71 20 127/96 97 07/21/17 12:54 07/21/17 11:04 07/21/17 12:54 07/21/17 12:54 07/21/17 11:04 General appearance: Present: A&O X 3, no acute distress - Head Head exam: Present: normocephalic - Eye Eye exam: Present: normal appearance - ENT ENT exam: Present: mucous membranes moist - Expanded Neck Exam Neck exam: Absent: carotid bruit - Respiratory Respiratory exam: Present: CTAB. Absent: respiratory distress - Expanded Respiratory Exam Location: decreased breath sounds: Right, Lower - Cardiovascular Cardiovascular exam: Present: RRR, +S1, +S2. Absent: diastolic murmur, gallop, rubs, systolic murmur - GI/Abdominal GI/Abdominal exam: Present: normal bowel sounds, soft, no peritoneal signs. Absent: distended, tenderness - Extremities Exam Extremities exam: Absent: pedal edema - Neurological Exam Neurological exam: Present: oriented X3, no focal deficits - Psychiatric Psychiatric exam: Present: normal mood - Skin Skin exam: Present: normal color Internal Med - H&P Results - Labs CBC & Chem 7: 07/21/17 10:13 07/21/17 10:13
[2017-07-21] MEDS ORDERED: Naloxone 0.4 MG/ML INJ IVP PRN (13:46)
--- NOTE | 2017-07-21 14:29 | Pulmonology Consult Note ---
Date of Encounter: 07/21/17 Time of Encounter: 14:25 Assessment and Plan (1) Pleural effusion Current Visit: Yes Status: Acute In conclusion this is a 32-year-old woman with a recently diagnosed provoked pulmonary embolus on long-term anticoagulation with Xarelto. She presented with proximally one week history of pleuritic chest pain noted to have pleural effusion on CTA without no evidence of venous thromboembolism. I suspect that her presentation is consistent with pleuritic chest pain secondary to the pleural effusion noted on the right. This is most likely related to her prior pulmonary embolus. I do not think this reflects evidence of cardiac dysfunction given that initial echocardiogram was unremarkable and on admission the day her troponin BNP are within normal limits and she does not have an oxygen requirement. She also does not have any clinical evidence of cardiac dysfunction such as syncope significant dyspnea on exertion or lower extremity edema. Optimally but in my opinion not absolutely necessary a diagnostic thoracentesis could be performed but the size of the effusion would likely require CT-guided biopsy for this. Unfortunately she is on anticoagulation which would be contraindicated today and interventional radiology would not be available over the weekend. I suspect that with a short course of anti-inflammatory medication such as ibuprofen over the next 48-72 hours this would have the effect of alleviating her pleuritic chest pain and I do not see any long-term consequences related to this small pleural effusion. Although the detention use of NSAID with a NOAC is not favorable a short course would not be contraindicated a view also held by our on staff pharmacist. There is no evidence to suggest that this is has an infectious etiology or related to a more systemic inflammatory process. As outlined above I do not think further cardiac workup such as echocardiogram would be helpful in elucidating etiology given abscence of clinical and laboratory evidence of cardiac strain. I provided the patient with our card in the office and I recommend following up with pulmonary early next week to reevaluate her clinically. I also reinforced to the patient that discharge she has worsening symptoms such as increased chest pain fevers chills worsening shortness of breath or syncope/ presyncope she should return to the emergency department once for evaluation. The patient expressed understanding and agreement with our plan Clearly she will need to continue daily anticoagulation with prescribed NOAC. Thank you for this consultation please call with any questions (2) Pleuritic chest pain Current Visit: Yes Status: Acute (3) Pulmonary embolism Current Visit: No Status: Acute Qualifiers: Pulmonary embolism type: other Chronicity: chronic Acute cor pulmonale presence: without acute cor pulmonale Qualified Code(s): I27.82 - Chronic pulmonary embolism History of Present Illness Consult date: 07/21/17 Requesting physician: Sabas Riley Reason for consult: abnormal CXR/CT Chief complaint: Chest Pain History of present illness: This is a very pleasant 32-year-old woman with a past medical history of recently diagnosed pulmonary embolism associated with contraceptive use. At that time she had a significant clot burden with mild hypoxemia that resolved before discharge but no evidence of right heart strain. She was discharged on Xarelto and has been compliant with therapy since. She is no longer taking oral contraceptives. She presented with a 2 day history of worsening chest pain on breathing associated with radiation to her scapula and shoulder region. This was noticed when she is was lying flat or when she takes deep breaths. She denies any significant cough fever or chills. She has had excellent exercise endurance since discharge from the hospital for acute diagnosis of PE. Including going to the gym and exercising on the [employer] without issue. She stopped doing that this week because she noted a little bit of shoulder pain and she thought she may wish pulled a muscle during one of her workouts. She denies any dyspnea with exertion syncope or presyncope at any time since last discharge she also denies lower extremity edema. Of note her lower extremity duplex was negative for DVT at last admission. She is a lifelong nonsmoker and works in the [email or web address] Department here at [employer]. In the ED a CTA was performed which was notable for a small right-sided effusion. There is no evidence of new pulmonary embolus. Pulmonary was consulted for further evaluation of this pleural effusion. In conversation today she is in no distress with excellent saturation on room air and denies chest pain at rest with normal breathing. Past Med Surg Social Fam HX - Past Medical History Medical history: other Psychiatric history: other - Past Surgical History Surgical History: other - Social History Smoking Status: Never smoker Smokeless Tobacco Status: No Alcohol use: rarely Drug use: none - Family History Father Hx Family Cardiac Disorders: Yes (HLD) Hx Family Endocrine Disorder: Yes Grandmother Hx Family Cardiac Disorders: Yes (Heart Attack, CVA) Mother Hx Family Cardiac Disorders: Yes Hx Family Neurologic Disorders: Yes (TIA) Medications and Allergies Escitalopram [Lexapro] 10 mg PO DAILY 06/19/17 [History] Rivaroxaban [Xarelto] 20 mg PO DAILY 07/21/17 [History] 3 Allergy/AdvReac Type Severity Reaction Status Date / Time Cefaclor [From [facility]] Allergy Rash Verified 06/18/17 17:13 All Systems: A 10-system review of systems was performed and is negative for pertinent findings except as documented above in the HPI. Physical Examination Vital Signs: Vital Signs, Last 4 Hours Temp Pulse Resp BP Pulse Ox 07/21/17 13:36 97.9 F 79 16 119/80 100 07/21/17 12:54 98.2 F 20 127/96 General appearance: no acute distress Eyes: nonicteric ENT: oropharynx moist Neck: supple Effort: normal Auscultation: bilateral: clear Cardiovascular: regular rate and rhythm Gastrointestinal: normoactive bowel sounds Integumentary: normal Extremities: no cyanosis, no edema, no clubbing Musculoskeletal: no deformities normal mental status, non-focal exam mood appropriate Results - Laboratory Findings CBC and BMP: 07/21/17 10:13 07/21/17 10:13 - Diagnostic Findings Chest x-ray: report reviewed, image reviewed CT scan - chest: report reviewed, image reviewed Consult Discharge Plan - Plan Referrals: Ranjeet Marinelli Jr, MD [Primary Care Provider] - 07/31/17 1:45 pm
[2017-07-21] MEDS ORDERED: *HR* Rivaroxaban 10 MG TABLET PO SCH (20:00)
[2017-07-22 06:32] LABS: Basophils % 0.4 %; Eosinophils # 0.1 K/mcL (0.0-0.6); Eosinophils % 1.9 %; Hematocrit 35.8 % (35.3-44.9); Hemoglobin 11.8 g/dL (11.5-15.4); Immature Granulocytes % 0.2 % (0-4); Lymphocytes % 21.7 %; Mean Corpuscular Hemoglobin 29.6 pg (28.0-33.3); Mean Corpuscular Volume 89.7 fL (83.0-100.0); Monocytes # 0.4 K/mcL (0.0-1.3); Monocytes % 7.6 %; Neutrophils # 3.2 K/mcL (1.6-8.9); Platelet Count 170 K/mcL (140-400); Red Blood Count 3.99 M/mcL (3.82-4.97); Red Cell Distribution Width 13.2 % (11.5-14.5); Segmented Neutrophils % 68.2 %
[2017-07-22 06:47] LABS: BUN/Creatinine Ratio 16 (6-26); Blood Urea Nitrogen 12 mg/dL (7-20); Calcium 9.1 mg/dL (8.6-10.8); Carbon Dioxide 28 mEq/L (19-29); Chloride 106 mEq/L (98-109); Glucose 112 mg/dL (70-99); Osmolality,Calculated 289 (280-300); Potassium 4.7 mEq/L (3.5-4.5); Sodium 139 mEq/L (136-145); eGFR For African Americans > 60 (> 60); eGFR For Non-African Americans > 60 (> 60)
[2017-07-22] MEDS ORDERED: Ibuprofen 600 MG TABLET PO PRN (10:28)
[2017-07-22 10:38] VITALS: BP 99/69
--- NOTE | 2017-07-22 10:39 | Discharge Summary ---
Date of Encounter: 07/22/17 Time of Encounter: 09:00 - Discharge Diagnosis (1) Pulmonary embolism Priority: Primary Status: Acute Qualifiers: Pulmonary embolism type: other Chronicity: chronic Acute cor pulmonale presence: without acute cor pulmonale Qualified Code(s): I27.82 - Chronic pulmonary embolism (2) Pleuritic chest pain Priority: Primary Status: Acute (3) Pleural effusion Priority: Primary Status: Acute - Discharge Medications Home Medications: Escitalopram [Lexapro] 10 mg PO DAILY 06/19/17 [History] Rivaroxaban [Xarelto] 20 mg PO DAILY 07/21/17 [History] Ibuprofen [Motrin] 600 mg PO Q6HR PRN #28 tab 07/22/17 [Rx] Omeprazole [PriLOSEC] 20 mg PO DAILY #30 cap 07/22/17 [Rx] Allergies/Adverse Reactions: 3 Allergy/AdvReac Type Severity Reaction Status Date / Time Cefaclor [From Ceclor] Allergy Rash Verified 06/18/17 17:13 Date of admission: 07/21/17 12:45 Primary care physician: Ranjeet Marinelli Jr, MD Consults: 07/21/17 13:47 Consult to Pulmonology [CONS] Routine Consulting Provider: [facility] [place] Reason for Consult: Pleuritic chest pain with mild pleural effusion Time Notified: 16:30 Call Completed: Yes Discharging clinician: Toñito Penaloza Anticipated date of discharge: 07/22/17 - Patient Status Disposition: Home, Self-Care Condition: Good Functional capacity at discharge: independent ambulation Overall status at discharge: patient is back to baseline - Discharge Instructions Follow Up With: Ranjeet Marinelli Jr, MD [Primary Care Provider] - 07/31/17 1:45 pm Rudy Cornell MD [Partnered Physician] - 07/28/17 - Diet and Activity Activity: increase activity as tolerated Diet: regular diet Hospital course: Ms. Chambers is a 32 year old female admitted for right-sided pleural pain and the right pleural effusion. Patient has history of PE and on xarelto now. Pulmonology consult was called and saw patient. Recommend NSAID for pain and follow up as outpatient with pulmonology. Patient will discharge home today. I saw and examined the patient. Still complaining of pain. No shortness of breath, no tachycardia, vitals are stable. Denies cough. Oxygen saturation 97 % in room air. Patient now discharged home with ibuprofen 600 mg by mouth every 6 hours when necessary for pain. Also order omeprazole 20 mg daily for GI prophylaxis as the patient is onxarelto and ibuprofen. Patient will follow- up with pulmonology as outpatient. - Time Spent with Patient Total time spent providing and/or coordinating discharge services: 25 minutes Less than 30 minutes - Constitutional Vitals: Temp Pulse Resp BP Pulse Ox 98.1 F 80 14 95/63 98 07/22/17 06:46 07/22/17 06:46 07/22/17 06:46 07/22/17 06:46 07/22/17 06:46 General appearance: Present: A&O X 3, no acute distress - Head Head exam: Present: atraumatic, normocephalic - Eye Eye exam: Present: PERRL, conjuntiva pink, sclera anicteric Pupils: Present: PERRL - Neck Neck exam general surgery: Present: supple, trachea midline. Absent: lymphadenopathy - Respiratory Respiratory exam: Present: CTAB. Absent: accessory muscle use, rales, rhonchi, wheezes - Cardiovascular Cardiovascular exam: Present: RRR, +S1, +S2. Absent: diastolic murmur, gallop, rubs, systolic murmur - GI/Abdominal GI/Abdominal exam: Present: normal bowel sounds, soft, no peritoneal signs. Absent: distended, tenderness - Extremities Exam Extremities exam: Present: warm, radial pulses palpable and symmetrical. Absent : calf tenderness, cyanotic, pedal edema - Neurological Exam Neurological exam: Present: CN II-XII intact, oriented X3, no focal deficits. Absent: pronater drift, facial droop, speech deficit - Skin Skin exam: Present: dry, intact
--- NOTE | 2017-07-22 13:15 | Electrocardiograph Report ---
[place] [id number] Test Date: 2017-07-21 Pat Name: Lizeth Chambers Department: 103 Room: 3A Gender: F Qc Tech: ELISABETH : 1985 Requested By: Pauly Arizmendi Order Number: [id number] Reading MD: Haven Burrows Measurements Intervals [place] Rate: 65 P: 30 [place]: 131 QRS: 67 QRSD: 88 T: 45 QT: 368 QTc: 380 Interpretive Statements SINUS RHYTHM NONSPECIFIC ST-T ABNORMALITIES Electronically Signed On 07-22-2017 13:14:04 EST by Haven Burrows
== END 2017-07-22 11:00 | disposition home or self-care (01) ==
LOC: 3ANU 09:08 → EMEROO 09:08 → 3ANU 13:15
PROVIDERS: ADMIT Hospitalist; ATTEND Internal Medicine